=== PATIENT | male | born 1990 | race Hispanic/Latino ===

== ENCOUNTER 2018-08-13 11:34 | Emergency (ER) | payer SELFPAY ==
--- NOTE | 2018-08-13 13:03 | EDPHYS ---
Physician Documentation [facility] Name: Riky Coleman Jr Age: 28 yrs Sex: Male : 1990 Arrival Date: 08/13/2018 Time: 11:37 Bed Treatment Private MD: Cherie Montenegro ED Physician Dane Govea HPI: 08/13 12:56 This 28 yrs old Male presents to ER via Ambulatory with complaints of Facial ramiro Swelling. 12:56 The patient or guardian reports pain, swelling. The complaints affect the left cheek. ramiro Context of injury: The problem was sustained at an unknown location. Onset: The symptoms/episode began/occurred 2 day(s) ago. Associated signs and symptoms: The patient has no apparent associated signs or symptoms. The patient presents with pain, redness. The problem is located in the upper left first bicuspid. Severity of symptoms: At their worst the symptoms were mild, moderate, in the emergency department the symptoms are unchanged. Historical: - Allergies: 12:09 No Known Allergies; iw - Home Meds: 12:09 None [Active]; iw - PMHx: 12:09 None; iw - PSHx: 12:09 None; iw - Immunization history:: Adult Immunizations not up to date. - Social history:: Smoking status: Patient uses tobacco products, cigars. - Ebola Screening: : Patient negative for fever greater than or equal to 101.5 degrees Fahrenheit, and additional compatible Ebola Virus Disease symptoms Patient denies exposure to infectious person Patient denies travel to an Ebola-affected area in the 21 days before illness onset No symptoms or risks identified at this time. ROS: 12:56 Constitutional: Negative for fever, chills, and weight loss, Eyes: Negative for injury, ramiro pain, redness, and discharge, Neck: Negative for injury, pain, and swelling, Cardiovascular: Negative for chest pain, palpitations, and edema, Respiratory: Negative for shortness of breath, cough, wheezing, and pleuritic chest pain, Abdomen/GI: Negative for abdominal pain, nausea, vomiting, diarrhea, and constipation, Back: Negative for injury and pain, : Negative for injury, bleeding, discharge, and swelling, MS/Extremity: Negative for injury and deformity, Skin: Negative for injury, rash, and discoloration, Neuro: Negative for headache, weakness, numbness, tingling, and seizure, Psych: Negative for depression, anxiety, suicide ideation, homicidal ideation, and hallucinations, Allergy/Immunology: Negative for hives, rash, and allergies, Endocrine: Negative for neck swelling, polydipsia, polyuria, polyphagia, and marked weight changes, Hematologic/Lymphatic: Negative for swollen nodes, abnormal bleeding, and unusual bruising. 12:56 ENT: Positive for Gum pain Teeth pain Exam: 12:56 Constitutional: This is a well developed, well nourished patient who is awake, alert, ramiro and in no acute distress. ENT: Nares patent. No nasal discharge, no septal abnormalities noted. Tympanic membranes are normal and external auditory canals are clear. Oropharynx with no redness, swelling, or masses, exudates, or evidence of obstruction, uvula midline. Mucous membranes moist. Neck: Trachea midline, no thyromegaly or masses palpated, and no cervical lymphadenopathy. Supple, full range of motion without nuchal rigidity, or vertebral point tenderness. No Meningismus. Chest/axilla: Normal chest wall appearance and motion. Nontender with no deformity. No lesions are appreciated. Cardiovascular: Regular rate and rhythm with a normal S1 and S2. No gallops, murmurs, or rubs. Normal PMI, no JVD. No pulse deficits. Respiratory: Lungs have equal breath sounds bilaterally, clear to auscultation and percussion. No rales, rhonchi or wheezes noted. No increased work of breathing, no retractions or nasal flaring. Abdomen/GI: Soft, non-tender, with normal bowel sounds. No distension or tympany. No guarding or rebound. No evidence of tenderness throughout. Back: No spinal tenderness. No costovertebral tenderness. Full range of motion. Male : Normal genitalia with no discharge or lesions. Skin: Warm, dry with normal turgor. Normal color with no rashes, no lesions, and no evidence of cellulitis. MS/ Extremity: Pulses equal, no cyanosis. Neurovascular intact. Full, normal range of motion. Neuro: Awake and alert, GCS 15, oriented to person, place, time, and situation. Cranial nerves II-XII grossly intact. Motor strength 5/5 in all extremities. Sensory grossly intact. Cerebellar exam normal. Normal gait. Psych: Awake, alert, with orientation to person, place and time. Behavior, mood, and affect are within normal limits. 12:56 Head/face: Noted is erythema, swelling, that is mild, that is moderate, of the left cheek. Vital Signs: 12:10 BP 120 / 71; Pulse 74; Resp 16; Pulse Ox 99% on R/A; Weight 106.59 kg; Height 5 ft. 8 iw in. (172.72 cm); Pain 10/10; 12:10 Body Mass Index 35.73 (106.59 kg, 172.72 cm) MDM: 12:12 Patient medically screened. [facility] 12:58 Data reviewed: vital signs, nurses notes. [facility] Administered Medications: 13:30 Drug: Clindamycin 600 mg Route: IM; Site: left deltoid; iw 13:50 Follow up: Response: No adverse reaction iw 13:40 Drug: Clindamycin 300 mg Route: PO; iw 13:50 Follow up: Response: No adverse reaction iw 13:48 Drug: Motrin 800 mg Route: PO; iw 13:58 Follow up: Response: No adverse reaction Disposition: 08/13/18 13:02 Discharged to Home. Impression: Dental caries, Dental root caries. - Condition is Stable. - Discharge Instructions: Dental Abscess, Dental Caries, Adult, Dental Pain, Dental Pain, [id number]. - Prescriptions for Clindamycin HCl 300 mg Oral Capsule - take 1 capsule by ORAL route every 6 hours for 10 days; 40 capsule. Ibuprofen 600 mg Oral Tablet - take 1 tablet by ORAL route every 8 hours As needed take with food; 21 tablet. - Medication Reconciliation Form, Thank You Letter, Antibiotic Education, Prescription Opioid Use form. - Follow up: Cherie Montenegro; When: 2 - 3 days; Reason: Recheck today's complaints, Continuance of care, Re-evaluation by your physician. Follow up: Mina King DDS; When: 2 - 3 days; Reason: Recheck today's complaints, Re-evaluation by your physician. - Problem is new. - Symptoms have improved. Signatures: Dane Govea MD MD cha Williams, Irene RN RN iw Corrections: (The following items were deleted from the chart) 13:48 13:02 08/13/2018 13:02 Discharged to Home. Impression: Dental caries; Dental root iw caries. Condition is Stable. Forms are Medication Reconciliation Form, Thank You Letter, Antibiotic Education, Prescription Opioid Use. Follow up: Cherie Montenegro; When: 2 - 3 days; Reason: Recheck today's complaints, Continuance of care, Re-evaluation by your physician. Follow up: Mina King; When: 2 - 3 days; Reason: Recheck today's complaints, Re-evaluation by your physician. Problem is new. Symptoms have improved. ramiro
--- NOTE | 2018-08-13 13:03 | ER ---
Nurse's Notes [facility] Name: Riky Coleman Jr Age: 28 yrs Sex: Male : 1990 Arrival Date: 08/13/2018 Time: 11:37 Bed Treatment Private MD: Cherie Montenegro Diagnosis: Dental caries;Dental root caries Presentation: 08/13 12:07 Presenting complaint: Patient states: pain to left upper jaw earlier this week, face iw now swollen since last night. Transition of care: patient was not received from another setting of care. Onset of symptoms was August 13, 2018. Risk Assessment: Do you want to hurt yourself or someone else? Patient reports no desire to harm self or others. Initial Sepsis Screen: Does the patient meet any 2 criteria? No. Patient's initial sepsis screen is negative. Does the patient have a suspected source of infection? No. Patient's initial sepsis screen is negative. Care prior to arrival: None. 12:07 Method Of Arrival: Ambulatory iw 12:07 Acuity: JESUS 4 iw Triage Assessment: 12:40 General: Appears in no apparent distress. comfortable. iw 13:20 General: Behavior is calm, cooperative. iw Historical: - Allergies: 12:09 No Known Allergies; iw - Home Meds: 12:09 None [Active]; iw - PMHx: 12:09 None; iw - PSHx: 12:09 None; iw - Immunization history:: Adult Immunizations not up to date. - Social history:: Smoking status: Patient uses tobacco products, cigars. - Ebola Screening: : Patient negative for fever greater than or equal to 101.5 degrees Fahrenheit, and additional compatible Ebola Virus Disease symptoms Patient denies exposure to infectious person Patient denies travel to an Ebola-affected area in the 21 days before illness onset No symptoms or risks identified at this time. Screenin:40 Fall Risk None identified. iw 12:50 Nutritional screening: No deficits noted. iw 12:50 Tuberculosis screening: No symptoms or risk factors identified. iw 13:20 Abuse screen: Denies threats or abuse. Denies injuries from another. iw Assessment: 12:40 General: Appears in no apparent distress. Behavior is calm, cooperative. Pain: iw Complains of pain in face and upper left first bicuspid and mouth and left cheek. Neuro: Level of Consciousness is awake, alert, obeys commands, Moves all extremities. Full function. Cardiovascular: Capillary refill < 3 seconds in bilateral fingers Patient's skin is warm and dry. Respiratory: Respiratory effort is even, unlabored. Derm: Skin is intact, is healthy with good turgor. Musculoskeletal: Range of motion: intact in all extremities. Vital Signs: 12:10 BP 120 / 71; Pulse 74; Resp 16; Pulse Ox 99% on R/A; Weight 106.59 kg; Height 5 ft. 8 iw in. (172.72 cm); Pain 10/10; 12:10 Body Mass Index 35.73 (106.59 kg, 172.72 cm) iw ED Course: 11:37 Patient arrived in ED. mr 11:37 Cherie Montenegro is Private Physician. mr 11:49 Patient's name was called from ER lobby. No response. sg 12:01 Patient's name was called from ER lobby. No response. Unable to locate patient. Will sg disposition as left without being seen by a provider. 12:08 Triage completed. iw 12:10 Briana Dennis, RN is Primary Nurse. iw 12:12 Dane Govea MD is Attending Physician. ramiro 12:40 Arm band placed on. iw 12:40 Patient has correct armband on for positive identification. iw 13:00 Cherie Montenegro is Referral Physician. ramiro 13:01 Mina King DDS is Referral Physician. ramiro 13:46 Patient did not have IV access during this emergency room visit. iw 13:48 No provider procedures requiring assistance completed. iw Administered Medications: 13:30 Drug: Clindamycin 600 mg Route: IM; Site: left deltoid; iw 13:50 Follow up: Response: No adverse reaction iw 13:40 Drug: Clindamycin 300 mg Route: PO; iw 13:50 Follow up: Response: No adverse reaction iw 13:48 Drug: Motrin 800 mg Route: PO; iw 13:58 Follow up: Response: No adverse reaction iw Outcome: 13:02 Discharge ordered by . ramiro 13:47 Discharged to home ambulatory, with family. iw 13:47 Condition: good 13:47 Discharge instructions given to patient, family, Instructed on discharge instructions, follow up and referral plans. medication usage, Demonstrated understanding of instructions, follow-up care, medications, Prescriptions given X 2. 13:48 Patient left the ED. iw Signatures: Charanjit Pan RN RN sg Anderson, Corey, MD MD cha [facility] mr Briana Dennis RN RN iw Corrections: (The following items were deleted from the chart) 12:10 12:07 Presenting complaint: Patient states: pain to right upper jaw earlier this week, iw face now swollen since last night iw
[2018-08-13] MEDS ORDERED: CLINDAMYCIN IV 150 MG/ML (4 mL) VIAL ONE (13:24)
[2018-08-13] MEDS ORDERED: CLINDAMYCIN HCL 150 MG CAP ONE (13:36)
[2018-08-13] MEDS ORDERED: IBUPROFEN 400 MG TAB ONE (13:36)
== END 2018-08-13 13:48 | disposition home or self-care (01) ==
LOC: ER 11:34
DX: K02.7 Dental root caries (principal); Z72.0 Tobacco use
CPT/HCPCS: 96372; 99283; S0077